=== PATIENT | female | born 1985 | race Caucasian/White ===

== ENCOUNTER 2018-09-28 10:27 | Emergency (ER) | payer OTHER, BC ==
[2018-09-28 11:24] LABS: Urine Appearance Clear; Urine Bilirubin Negative (Negative); Urine Blood Negative (Negative); Urine Color Straw; Urine Glucose Negative (Negative); Urine Ketones Negative (Negative); Urine Nitrite Negative (Negative); Urine Protein Negative (Negative); Urine Specific Gravity 1.002 (1.010-1.030); Urine Urobilinogen Negative (Negative)
[2018-09-28 11:43] LABS: Barbiturates Urine Screen None Detected (None Detect); Benzodiazepine Urine Screen None Detected (None Detect); Urine Cannabinoids Screen Presumptive Positive (None Detect)
[2018-09-28 12:46] LABS: ABS Basophils 0 10^3/ul (0-0.2); ABS Eosinophils 0.2 10^3/ul (0-0.6); ABS Lymphocytes 2.2 10^3/ul (1.0-4.8); ABS Monocytes 0.5 10^3/ul (0-0.8); ABS Nucleated RBC 0 10^3/ul; Eosinophil % 2.8 %; Hematocrit 47 % (35-47); Hemoglobin 16.3 g/dl (12.0-16.0); Lymphocyte % 27.2 %; Mean Corpuscular HGB Conc 35 g/dl (31-36); Mean Corpuscular Hemoglobin 32 pg (27-31); Mean Corpuscular Volume 92 fL (80-97); Mean Platelet Volume 6.8 fL (7.4-10.4); Nucleated Red Blood Cells % 0; Platelet Count 274 10^3/ul (150-450); Red Blood Count 5.11 10^6/ul (4.00-5.40); Red Cell Distribution Width 14 % (10.5-15); White Blood Count 7.9 10^3/ul (3.5-10.8)
[2018-09-28 13:20] LABS: ALT 18 U/L (7-52); AST 15 U/L (13-39); Albumin 4.2 g/dL (3.2-5.2); Albumin/Globulin Ratio 1.2 (1-3); Alkaline Phosphatase 66 U/L (34-104); Anion Gap 7 mmol/L (2-11); BUN/Creatinine Ratio 9.2 (8-20); Blood Urea Nitrogen 6 mg/dL (6-24); CO2 Carbon Dioxide 27 mmol/L (22-32); Calcium 9.8 mg/dL (8.6-10.3); Chloride 102 mmol/L (101-111); EGFR Non-African American 105.6 (>60); Globulin 3.5 g/dL (2-4); Glucose 86 mg/dL (70-100); Potassium 3.7 mmol/L (3.5-5.0); Sodium 136 mmol/L (135-145); Total Protein 7.7 g/dL (6.4-8.9)
[2018-09-28 13:25] LABS: Alcohol < 10 mg/dL (<10); Salicylate < 2.50 mg/dL (<30)
[2018-09-28 13:36] LABS: TSH (Thyroid Stimulating Horm) 1.16 mcIU/mL (0.34-5.60)
[2018-09-28 13:42] LABS: Acetaminophen 4 mcg/mL
[2018-09-28] MEDS ORDERED: Ketorolac INJ* 30 MG/ML 1 ML VIAL IM ONE (15:05)
[2018-09-28] MEDS ORDERED: Diazepam TAB(*) 5 MG PO ONE (15:08)
[2018-09-28] MEDS ORDERED: Ketorolac INJ* 30 MG/ML 1 ML VIAL IV PUSH ONE (15:53)
[2018-09-28] MEDS ORDERED: NS 0.9% 1000 ML* 1,000 ML IV ONE (15:54)
[2018-09-28] MEDS ORDERED: Dexamethasone IV* 4 MG/ML 1 ML (4 MG) IV SLOW PU ONE (15:54)
--- NOTE | 2018-09-28 15:57 | ED ---
Headache - HPI Summary HPI Summary: 33-year-old female presents with memory loss and headaches for the past month. States she's been having increasing suicidal thoughts but will not act on them. States she was seen at [facility] and had a full workup and they said to follow- up with psychiatrist. She should not been seen on psychiatry. She says that events happen throughout the day that she cannot recall. She has a generalized headache. She admits to some nausea. She does have a history of migraines. She denies any suicidal or homicidal ideations. She states she wants to be seen by mental health. She denies any fevers. She states that she has stiffness into her neck. She has pain in her neck feels like muscle spasm. She states that her migraines originate from her neck. She hasn't tried anything for pain. No light sensitivity. - History Of Current Complaint Chief Complaint: EDAltMentalStatus Stated Complaint: MENTAL HEALTH Time Seen by Provider: 09/28/18 14:00 - Allergies/Home Medications Allergies/Adverse Reactions: Allergies Allergy/AdvReac Type Severity Reaction Status Date / Time amitriptyline Allergy Unknown Verified 09/28/18 15:22 Reaction Details gabapentin [From Neurontin] Allergy Unknown Verified 09/28/18 15:22 Reaction Details pregabalin [From Lyrica] Allergy Unknown Verified 09/28/18 15:22 Reaction Details Sulfa (Sulfonamide Allergy Unknown Verified 09/28/18 15:22 Antibiotics) Reaction Details Home Medications: Home Medications Amphetamine/Dextroamph ER(NF) [Adderal XR (NF)] 30 mg PO DAILY 09/28/18 [ History Confirmed 09/28/18] Esomeprazole(NF) [Nexium(NF)] 40 mg pe PO DAILY WITH MEAL 09/28/18 [History Confirmed 09/28/18] Losartan TAB* [Cozaar TAB*] 25 mg PO DAILY 09/28/18 [History Confirmed 09/28/18] Sertraline HCl [Zoloft] 100 mg PO DAILY 09/28/18 [History Confirmed 09/28/18] Spironolactone 25 mg PO DAILY 09/28/18 [History Confirmed 09/28/18] PMH/Surg Hx/FS Hx/Imm Hx Endocrine/Hematology History: Denies: Hx Anticoagulant Therapy Neurological History: Reports: Other Neuro Impairments/Disorders - migraine - Surgical History Surgery Procedure, Year, and Place: hystectomy, appendectomy, cholecystectomy, cervical fusion Infectious Disease History: No Infectious Disease History: Denies: Traveled Outside the [place] in Last 30 Days - Family History Known Family History: Positive: Non-Contributory - Social History Alcohol Use: Occasionally Substance Use Type: Reports: Marijuana, Prescribed Smoking Status (MU): Current Every Day Smoker Review of Systems Negative: Fever Negative: Chest Pain Negative: Shortness Of Breath Neurological: Other - memory loss Positive: Headache All Other Systems Reviewed And Are Negative: Yes Physical Exam Triage Information Reviewed: Yes Vital Signs On Initial Exam: Initial Vitals Temp Pulse Resp BP Pulse Ox 97.8 F 98 18 150/109 98 09/28/18 10:28 09/28/18 10:28 09/28/18 10:28 09/28/18 10:28 09/28/18 10:28 Vital Signs Reviewed: Yes Appearance: Positive: Well-Appearing Skin: Positive: Warm, Dry Head/Face: Positive: Normal Head/Face Inspection Eyes: Positive: Normal, EOMI, ÁNGEL, Conjunctiva Clear ENT: Positive: Normal ENT inspection, Pharynx normal, TMs normal Respiratory/Lung Sounds: Positive: Clear to Auscultation, Breath Sounds Present Cardiovascular: Positive: Normal, RRR Abdomen Description: Positive: Nontender, Soft Bowel Sounds: Positive: Present Musculoskeletal: Positive: Normal Neurological: Positive: Sensory/Motor Intact, Alert, Oriented to Person Place, Time, CN Intact II-III Psychiatric: Positive: Normal Diagnostics - Vital Signs Vital Signs Temp Pulse Resp BP Pulse Ox 09/28/18 15:23 16 09/28/18 15:20 84 16 129/90 98 09/28/18 11:55 98.7 F 86 16 149/95 99 09/28/18 10:28 97.8 F 98 18 150/109 98 - Laboratory Lab Results: Lab Results 09/28/18 09/28/18 09/28/18 Range/Units 11:08 11:08 12:35 WBC 7.9 (3.5-10.8) 10^3/ul RBC 5.11 (4.00-5.40) 10^6/ul Hgb 16.3 H (12.0-16.0) g/dl Hct 47 (35-47) % MCV 92 (80-97) fL MCH 32 H (27-31) pg MCHC 35 (31-36) g/dl RDW 14 (10.5-15) % Plt Count 274 (150-450) 10^3/ul MPV 6.8 L (7.4-10.4) fL Neut % (Auto) 62.9 % Lymph % (Auto) 27.2 % [place] % (Auto) 6.9 % Eos % (Auto) 2.8 % Baso % (Auto) 0.2 % Absolute Neuts (auto) 5.0 (1.5-7.7) 10^3/ul Absolute Lymphs (auto) 2.2 (1.0-4.8) 10^3/ul Absolute Monos (auto) 0.5 (0-0.8) 10^3/ul Absolute Eos (auto) 0.2 (0-0.6) 10^3/ul Absolute Basos (auto) 0 (0-0.2) 10^3/ul Absolute Nucleated RBC 0 10^3/ul Nucleated RBC % 0 Sodium (135-145) mmol/L Potassium (3.5-5.0) mmol/L Chloride (101-111) mmol/L Carbon Dioxide (22-32) mmol/L Anion Gap (2-11) mmol/L BUN (6-24) mg/dL Creatinine (0.51-0.95) mg/dL Est GFR ( Amer) (>60) Est GFR (Non-Af Amer) (>60) BUN/Creatinine Ratio (8-20) Glucose (70-100) mg/dL Calcium (8.6-10.3) mg/dL Total Bilirubin (0.2-1.0) mg/dL AST (13-39) U/L ALT (7-52) U/L Alkaline Phosphatase (34-104) U/L Total Protein (6.4-8.9) g/dL Albumin (3.2-5.2) g/dL Globulin (2-4) g/dL Albumin/Globulin Ratio (1-3) TSH (0.34-5.60) mcIU/mL Urine Color Straw Urine Appearance Clear Urine pH 6.0 (5-9) Ur Specific [place] 1.002 L (1.010-1.030) Urine Protein Negative (Negative) Urine Ketones Negative (Negative) Urine Blood Negative (Negative) Urine Nitrate Negative (Negative) Urine Bilirubin Negative (Negative) Urine Urobilinogen Negative (Negative) Ur Leukocyte Esterase Negative (Negative) Urine Glucose Negative (Negative) Salicylates (<30) mg/dL Urine Opiates Screen None detected (None Detect) Acetaminophen mcg/mL Ur Barbiturates Screen None detected (None Detect) Ur Phencyclidine Scrn None detected (None Detect) Ur Amphetamines Screen Presumptive positive A (None Detect) U Benzodiazepines Scrn None detected (None Detect) Urine Cocaine Screen None detected (None Detect) U Cannabinoids Screen Presumptive positive A (None Detect) Serum Alcohol (<10) mg/dL 09/28/18 Range/Units 12:35 WBC (3.5-10.8) 10^3/ul RBC (4.00-5.40) 10^6/ul Hgb (12.0-16.0) g/dl Hct (35-47) % MCV (80-97) fL MCH (27-31) pg MCHC (31-36) g/dl RDW (10.5-15) % Plt Count (150-450) 10^3/ul MPV (7.4-10.4) fL Neut % (Auto) % Lymph % (Auto) % [place] % (Auto) % Eos % (Auto) % Baso % (Auto) % Absolute Neuts (auto) (1.5-7.7) 10^3/ul Absolute Lymphs (auto) (1.0-4.8) 10^3/ul Absolute Monos (auto) (0-0.8) 10^3/ul Absolute Eos (auto) (0-0.6) 10^3/ul Absolute Basos (auto) (0-0.2) 10^3/ul Absolute Nucleated RBC 10^3/ul Nucleated RBC % Sodium 136 (135-145) mmol/L Potassium 3.7 (3.5-5.0) mmol/L Chloride 102 (101-111) mmol/L Carbon Dioxide 27 (22-32) mmol/L Anion Gap 7 (2-11) mmol/L BUN 6 (6-24) mg/dL Creatinine 0.65 (0.51-0.95) mg/dL Est GFR ( Amer) 127.8 (>60) Est GFR (Non-Af Amer) 105.6 (>60) BUN/Creatinine Ratio 9.2 (8-20) Glucose 86 (70-100) mg/dL Calcium 9.8 (8.6-10.3) mg/dL Total Bilirubin 0.50 (0.2-1.0) mg/dL AST 15 (13-39) U/L ALT 18 (7-52) U/L Alkaline Phosphatase 66 (34-104) U/L Total Protein 7.7 (6.4-8.9) g/dL Albumin 4.2 (3.2-5.2) g/dL Globulin 3.5 (2-4) g/dL Albumin/Globulin Ratio 1.2 (1-3) TSH 1.16 (0.34-5.60) mcIU/mL Urine Color Urine Appearance Urine pH (5-9) Ur Specific [place] (1.010-1.030) Urine Protein (Negative) Urine Ketones (Negative) Urine Blood (Negative) Urine Nitrate (Negative) Urine Bilirubin (Negative) Urine Urobilinogen (Negative) Ur Leukocyte Esterase (Negative) Urine Glucose (Negative) Salicylates < 2.50 (<30) mg/dL Urine Opiates Screen (None Detect) Acetaminophen 4 mcg/mL Ur Barbiturates Screen (None Detect) Ur Phencyclidine Scrn (None Detect) Ur Amphetamines Screen (None Detect) U Benzodiazepines Scrn (None Detect) Urine Cocaine Screen (None Detect) U Cannabinoids Screen (None Detect) Serum Alcohol < 10 (<10) mg/dL Result Diagrams: 09/28/18 12:35 09/28/18 12:35 Lab Statement: Any lab studies that have been ordered have been reviewed, and results considered in the medical decision making process. - CT brain CT Interpretation Completed By: Radiologist Summary of CT Findings: IMPRESSION: NO ACUTE INTRACRANIAL PATHOLOGY. Re-Evaluation - Re-Evaluation First Eval Comment: will not take oral meds Second Eval Re-Evaluation Time: 15:56 Comment: patient requesting iv and steriods. Third Eval Change: Improved Comment: feeling better after toradol and steriod Headache Course/Dx - Course Course Of Treatment: 33-year-old female presents with memory loss and headaches for the past month. States she's been having increasing suicidal thoughts but will not act on them. States she was seen at [facility] and had a full workup and they said to follow-up with psychiatrist. She should not been seen on psychiatry. She says that events happen throughout the day that she cannot recall. She has a generalized headache. She admits to some nausea. She does have a history of migraines. She denies any suicidal or homicidal ideations. She states she wants to be seen by mental health. She denies any fevers. She states that she has stiffness into her neck. She has pain in her neck feels like muscle spasm. She states that her migraines originate from her neck. She hasn't tried anything for pain. No light sensitivity. On exam has a normal neuro exam. Full range of motion neck. Gave Valium feeling better. The patient initially said does not know what work and then later requested decadron saying it work for her. Gave the medications the patient became agitated that was not getting care quick enough. Patient then able to recall details from previous visit at [facility] that patient cannot recall initially as she states she had memory loss of the event. Patient was evaluated by psychiatry they felt the patient was not needed to be admitted. discussed with the patient and will prescribe Valium and as patient has not been sleeping and is having muscle spasms. We'll have follow-up with neurology about the headaches and memory loss. Patient understands agrees with plan - Diagnoses Differential Diagnosis/HQI/PQRI: Migraine, Viral Syndrome Provider Diagnoses: Headache, Memory loss, Depression Discharge - Sign-Out/Discharge Documenting (check all that apply): Patient Departure - Discharge Plan Condition: Stable Disposition: HOME Prescriptions: Diazepam TAB(*) [Valium TAB(*)] 5 mg PO BID PRN #[id number] tab MDD 2 PRN Reason: Spasms Patient Education Materials: General Headache (ED) Referrals: Nella Lentz [Other] (please follow up as soon as possible) Randall Son [Primary Care Provider] - Vadim Stringer MD [Medical Doctor] - Additional Instructions: follow up with neurology take Valium every 12 hours as needed for pain follow up with psychiatry Return to ED if develop any new or worsening symptoms - Billing Disposition and Condition Condition: STABLE Disposition: Home
[2018-09-28 18:19] VITALS: BP 138/92
== END 2018-09-28 18:18 | disposition home or self-care (01) ==
LOC: ED 10:27
DX: R51 Headache (principal); R41.3 Other amnesia; F32.9 Major depressive disorder, single episode, unspecified; Z88.2 Allergy status to sulfonamides; F17.210 Nicotine dependence, cigarettes, uncomplicated
CPT/HCPCS: 36415; 70450; 80053; 80307; 80320; 80329; 81003; 84443; 85025; 96361; 96372; 96374; 96375; 99284; A9270-GY; G0480; J1100; J1885